=== PATIENT | male | born 1955 | race Two or more races ===

== ENCOUNTER 2024-03-30 16:24 | Inpatient (IN) | payer OTHER ==
[~2024-03-30] VITALS: Ht 167.6 cm; Wt 79.8 kg
[2024-03-30] MEDS ORDERED: GLUMETZA1000 MG PO (16:32)
--- NOTE | 2024-03-30 16:32 | NUR ---
SE RECIBE PTE ALERTA Y ORIENTADO X3 EL MISMO REFIERE QUE PADECE DE DIABETES Y EL ANY DE SYL LUEGO D ETRABAJAR SE CAROL EL ZAPATO DE PIE DERECHO Y LO OBSERVO ENROJECIDO Y CON MUCHO DOLOR, SE PALPA EL MISMO Y SE PRESENTA CALIENTE Y DOLOROSO AL TACTO.
[2024-03-30] MEDS ORDERED: 0.9 % SODIUM CHLORIDE 1,000 ML IV ONE (17:00)
[2024-03-30] MEDS ORDERED: PIPERACILLIN/TAZOBACTAM SODIUM 3.375 GM VIAL IV ONE (17:00)
--- NOTE | 2024-03-30 17:08 | NUR ---
ISIDRO ANGULO ORIENTA A PACIENTE SOBRE TRATAMIENTO MEDICO QUIEN INDICA ENTENDER Y ACEPTAR. SE MERCEDES MUESTRAS DE LABORATORIO BAJO MEDIDAS ASEPTICAS Y SE ADMINISTRAN MEDICAMENTOS MAEVE ORDEN MEDICA.
[2024-03-30 17:18] LABS: HEMATOCRIT 34.5 % (39.0-48.0); HEMOGLOBIN 11.5 g/dL (13-16.00); MEAN CORPUSCULAR HEMOGLOBIN 30.8 pg (27.00-32.0); MEAN CORPUSCULAR HGB CONC 33.4 g/dl (32.0-36.0); PLATELET COUNT 204 K/uL (150-450); RED BLOOD COUNT 3.74 M/uL (4.00-6.00); RED CELL DISTRIBUTION WIDTH 14.4 % (11.5-14.5)
[2024-03-30 17:25] LABS: ERYTHROCYTE SEDIMENTATION RATE 62 mm/hr
[2024-03-30 17:37] LABS: PH,URINE 6.5 (5.0-8.0); URINE APPEARANCE Clear; URINE BILIRRUBIN Negative (NEGATIVE); URINE BLOOD Negative; URINE COLOR Yellow; URINE GLUCOSE Negative (NEGATIVE); URINE KETONE Negative (NEGATIVE); URINE LEUKOCYTE Trace; URINE NITRATE Negative; URINE PROTEIN Negative (NEGATIVE); URINE UROBILINOGEN 0.2 E.U./dl
[2024-03-30 17:39] LABS: INR 1.07; PARTIAL THROMBOPLASTIN TIME 26.4 SECONDS (22.0-34.0); PROTHROMBIN TIME 11.6 SECONDS (9.0-11.5)
[2024-03-30 17:41] LABS: URINE BACTERIA 8.8 uL (0.0-1933); URINE RBC 5.9 uL (0.0-20.8)
[2024-03-30 17:42] LABS: URINE EPITHELIAL CELLS 0.6 uL (0.0-38.8); URINE WBC 0.3 uL (0.0-23.2)
[2024-03-30 17:44] LABS: ALBUMIN 3.7 gm/dL (3.4-5.0); BILIRUBIN TOTAL 0.38 mg/dL (0.3-1.2); CALCIUM 9.5 mg/dL (8.5-10.1); CREATININE SERUM 1.19 mg/dL (0.70-1.30); GFR 60.61; GLOBULINA 4.3 G/DL (2.4-3.5); POTASSIUM 5.31 mEq/L (3.5-5.1)
[2024-03-30 17:51] LABS: C-REACTIVE PROTEIN 10.6 MG/DL (0.00-0.29)
[2024-03-30] MEDS ORDERED: 0.9 % SODIUM CHLORIDE 1,000 ML IV SCH (21:00)
[2024-03-30] MEDS ORDERED: VANCOMYCIN HCL 1,000 MG IV SCH (21:04)
[2024-03-30] MEDS ORDERED: CEFEPIME HCL 2,000 MG in 0.9 % SODIUM CHLORIDE 100 ML IV SCH (21:04)
[2024-03-30] MEDS ORDERED: GABAPENTIN 300 MG CAPSULE PO SCH (21:07)
[2024-03-30] MEDS ORDERED: INSULIN LISPRO 1,000 UNIT/10 ML UNITS SUBCUTANEO PRN (21:15)
[2024-03-30] MEDS ORDERED: DEXTROSE 50 % IN WATER 0.5 G/ML DISP.SYRIN IV PRN (21:15)
[2024-03-30] MEDS ORDERED: ACETAMINOPHEN 500 MG GEL..CAP PO PRN (21:15)
[2024-03-30] MEDS ORDERED: VANCOMYCIN HCL 5 MG/ML REDILUIDO IV SCH (23:55)
[2024-03-31 00:26] LABS: MAGNESIUM 2.1 mg/dL (1.8-2.4); PHOSPHOROUS 3.8 mg/dL (2.5-4.9)
[2024-03-31 02:14] VITALS: BP 163/75; O2SAT 96
[2024-03-31 07:25] LABS: CHOL HDL RATIO 2.3 (0-5.0)
[2024-03-31 07:27] LABS: TSH 0.994 uIU/mL (0.358-3.74)
[2024-03-31] MEDS ORDERED: FAMOTIDINE/PF 20 MG in 0.9 % SODIUM CHLORIDE 8 ML IV PUSH SCH (09:00)
[2024-03-31] MEDS ORDERED: VANCOMYCIN HCL 1,000 MG VIAL IV SCH (09:00)
[2024-03-31] MEDS ORDERED: ENOXAPARIN SODIUM 40 MG/0.4 ML SYRINGE SUBCUTANEO SCH (09:00)
[2024-03-31 09:11] VITALS: BP 155/70; O2SAT 99
[2024-03-31 17:40] VITALS: BP 139/77; O2SAT 100
[2024-03-31] MEDS ORDERED: PIPERACILLIN/TAZOBACTAM SODIUM 3.375 GM in 0.9 % SODIUM CHLORIDE 100 ML IV SCH (18:00)
[2024-04-01 01:47] VITALS: BP 130/70; O2SAT 98
[2024-04-01 09:02] VITALS: BP 160/80; O2SAT 98
[2024-04-01] MEDS ORDERED: INSULIN GLARGINE,HUM.REC.ANLOG 1,000 UNITS/10 ML UNITS SUBCUTANEO STA (09:54)
[2024-04-01 12:29] LABS: HEMATOCRIT 34.5 % (39.0-48.0); HEMOGLOBIN 11.4 g/dL (13-16.00); MEAN CELL VOLUME 91.6 fL (80.0-100.00); MEAN CORPUSCULAR HEMOGLOBIN 30.3 pg (27.00-32.0); MEAN CORPUSCULAR HGB CONC 33.1 g/dl (32.0-36.0); PLATELET COUNT 205 K/uL (150-450); RED BLOOD COUNT 3.76 M/uL (4.00-6.00); RED CELL DISTRIBUTION WIDTH 14.1 % (11.5-14.5)
[2024-04-01 13:04] LABS: ALBUMIN 3.5 gm/dL (3.4-5.0); BILIRUBIN TOTAL 0.44 mg/dL (0.3-1.2); CREATININE SERUM 0.88 mg/dL (0.70-1.30); GFR 85.86; GLOBULINA 3.6 G/DL (2.4-3.5); POTASSIUM 4.95 mEq/L (3.5-5.1); TOTAL PROTEIN 7.1 gm/dL (6.4-8.2)
[2024-04-01 13:10] LABS: C-REACTIVE PROTEIN 7.36 MG/DL (0.00-0.29)
[2024-04-01] MEDS ORDERED: FAMOtidine 20 MG TABLET PO SCH (21:00)
[2024-04-02 01:45] VITALS: BP 132/74; O2SAT 97
[2024-04-02] MEDS ORDERED: INSULIN GLARGINE,HUM.REC.ANLOG 1,000 UNITS/10 ML UNITS SUBCUTANEO SCH (09:00)
[2024-04-02 09:04] VITALS: BP 168/82; O2SAT 98
[2024-04-02] MEDS ORDERED: ASPIRIN 81 MG TAB.CHEW PO NR (11:00)
[2024-04-02] MEDS ORDERED: CLOPIDOGREL BISULFATE 75 MG TABLET PO NR (11:00)
[2024-04-02 15:43] VITALS: BP 168/74
[2024-04-02] MEDS ORDERED: CLOPIDOGREL BISULFATE 75 MG TABLET PO SCH (17:00)
[2024-04-03 01:46] VITALS: BP 140/77; O2SAT 99
[2024-04-03 08:07] VITALS: BP 136/65
[2024-04-03] MEDS ORDERED: ASPIRIN 81 MG TAB.CHEW PO SCH (09:00)
[2024-04-03] MEDS ORDERED: CIPROFLOXACIN IN 5 % DEXTROSE 400 MG/200 ML PIGGYBAG IV SCH (17:00)
[2024-04-03 18:12] VITALS: BP 160/82; O2SAT 96
[2024-04-03] MEDS ORDERED: VANCOMYCIN HCL 1,000 MG VIAL IV SCH (21:00)
[2024-04-04 01:06] VITALS: BP 144/65; O2SAT 97
[2024-04-04 09:31] VITALS: BP 160/89; O2SAT 97
[2024-04-04 10:50] LABS: HEMATOCRIT 34.5 % (39.0-48.0); HEMOGLOBIN 11.5 g/dL (13-16.00); MEAN CELL VOLUME 89.8 fL (80.0-100.00); MEAN CORPUSCULAR HEMOGLOBIN 29.9 pg (27.00-32.0); MEAN CORPUSCULAR HGB CONC 33.3 g/dl (32.0-36.0); PLATELET COUNT 228 K/uL (150-450); RED BLOOD COUNT 3.84 M/uL (4.00-6.00); RED CELL DISTRIBUTION WIDTH 14.2 % (11.5-14.5)
[2024-04-04 12:18] LABS: ALBUMIN 3.4 gm/dL (3.4-5.0); BILIRUBIN TOTAL 0.24 mg/dL (0.3-1.2); CALCIUM 9.1 mg/dL (8.5-10.1); CREATININE SERUM 0.94 mg/dL (0.70-1.30); GFR 79.57; GLOBULINA 4.1 G/DL (2.4-3.5); POTASSIUM 4.87 mEq/L (3.5-5.1); TOTAL PROTEIN 7.5 gm/dL (6.4-8.2)
[2024-04-04 17:46] VITALS: BP 160/78; O2SAT 98
[2024-04-05 00:39] VITALS: BP 106/67
[2024-04-05 09:05] VITALS: BP 149/81; O2SAT 99
== END 2024-04-05 13:55 | disposition home or self-care (01) | DRG 264 ==
LOC: ER 16:25 → MEDJ 21:07
PROVIDERS: General Practice; Internal Medicine; Internal Medicine Infectious Disease; ADMIT Internal Medicine; ATTEND Internal Medicine
PROC: B54DZZZ Ultrasonography of Bilateral Lower Extremity Veins (ICD-10-PCS; 2024-03-30)
PROC: BL31ZZZ Magnetic Resonance Imaging (MRI) of Lower Extremity Connective Tissue (ICD-10-PCS; 2024-03-31)
PROC: B44HZZZ Ultrasonography of Bilateral Lower Extremity Arteries (ICD-10-PCS; 2024-03-31)
PROC: B41GZZZ Fluoroscopy of Left Lower Extremity Arteries (ICD-10-PCS; 2024-04-01)
PROC: B44GZZZ Ultrasonography of Left Lower Extremity Arteries (ICD-10-PCS; 2024-04-01)
PROC: 0JBQ0ZZ Excision of Right Foot Subcutaneous Tissue and Fascia, Open Approach (ICD-10-PCS; principal; 2024-04-02)
PROC: 02HV33Z Insertion of Infusion Device into Superior Vena Cava, Percutaneous Approach (ICD-10-PCS; 2024-04-03)
DX: E11.52 Type 2 diabetes mellitus with diabetic peripheral angiopathy with gangrene (principal); I96 Gangrene, not elsewhere classified; N17.9 Acute kidney failure, unspecified; L97.518 Non-pressure chronic ulcer of other part of right foot with other specified severity; E11.621 Type 2 diabetes mellitus with foot ulcer; L03.031 Cellulitis of right toe; I70.292 Other atherosclerosis of native arteries of extremities, left leg; I12.9 Hypertensive chronic kidney disease with stage 1 through stage 4 chronic kidney disease, or unspecified chronic kidney disease; E11.65 Type 2 diabetes mellitus with hyperglycemia; N18.9 Chronic kidney disease, unspecified; Z79.84 Long term (current) use of oral hypoglycemic drugs; B96.4 Proteus (mirabilis) (morganii) as the cause of diseases classified elsewhere; B95.62 Methicillin resistant Staphylococcus aureus infection as the cause of diseases classified elsewhere; B96.89 Other specified bacterial agents as the cause of diseases classified elsewhere
CPT/HCPCS: 73725

== ENCOUNTER 2024-04-08 15:18 | Emergency (ER) | payer OTHER ==
[~2024-04-08] VITALS: Ht 167.6 cm; Wt 79.8 kg
[~2024-04-08 15:18] MED LIST: GLUMETZA1000 MG PO
[2024-04-09] MEDS ORDERED: GLIPIZIDE XL2.5 MG (09:33)
[2024-04-09] MEDS ORDERED: COZAAR25 MG PO (09:33)
== END 2024-04-08 20:30 | disposition home or self-care (01) ==
LOC: ER 15:18
DX: T82.898A Other specified complication of vascular prosthetic devices, implants and grafts, initial encounter (principal); E11.9 Type 2 diabetes mellitus without complications; Z79.84 Long term (current) use of oral hypoglycemic drugs

== ENCOUNTER 2024-04-09 08:42 | Emergency (ER) | payer OTHER ==
[~2024-04-09] VITALS: Ht 167.6 cm; Wt 79.8 kg
[2024-04-09] MEDS ORDERED: COZAAR25 MG PO (09:33)
[2024-04-09] MEDS ORDERED: GLIPIZIDE XL2.5 MG (09:33)
[2024-04-09] MEDS ORDERED: CIPROFLOXACIN IN 5 % DEXTROSE 400 MG/200 ML PIGGYBAG IV ONE (12:45)
[2024-04-09] MEDS ORDERED: VANCOMYCIN HCL 1,000 MG VIAL IV ONE (12:45)
== END 2024-04-09 17:55 | disposition home or self-care (01) ==
LOC: ER 08:44
DX: T82.594A Other mechanical complication of infusion catheter, initial encounter (principal)
CPT/HCPCS: 36571; 96365; 99284; J0744; J3370

== ENCOUNTER 2024-04-09 10:42 | Outpatient (CLI) | payer OTHER ==
[~2024-04-09 10:42] MED LIST changes: +COZAAR25 MG PO; +GLIPIZIDE XL2.5 MG
[2024-04-09 12:16] LABS: HEMATOCRIT 37.1 % (39.0-48.0); HEMOGLOBIN 12.5 g/dL (13-16.00); MEAN CELL VOLUME 89.5 fL (80.0-100.00); MEAN CORPUSCULAR HEMOGLOBIN 30.2 pg (27.00-32.0); MEAN CORPUSCULAR HGB CONC 33.7 g/dl (32.0-36.0); PLATELET COUNT 250 K/uL (150-450); RED BLOOD COUNT 4.15 M/uL (4.00-6.00); RED CELL DISTRIBUTION WIDTH 14.3 % (11.5-14.5)
[2024-04-09 12:54] LABS: INR 1.06; PARTIAL THROMBOPLASTIN TIME 27.3 SECONDS (22.0-34.0); PROTHROMBIN TIME 11.5 SECONDS (9.0-11.5)
== END 2024-04-09 15:15 | disposition home or self-care (01) ==
LOC: LAB 10:42
PROVIDERS: ATTEND Emergency Medicine
DX: B34.9 Viral infection, unspecified (principal)